=== PATIENT | female | born 2000 | race Hispanic/Latino ===

== ENCOUNTER 2023-10-10 18:27 | Day surgery (SDC) | payer SELFPAY ==
[2023-10-10] MEDS ORDERED: hydrALAZINE 20 MG/ML VIAL SLOW IVP PRN (18:46)
[2023-10-10 19:04] VITALS: BMI 36.7
[2023-10-10 20:29] LABS: Bilirubin Neg (Negative); Blood, Urine Negative (Negative); Clarity Clear (Clear); Glucose, Urine (Dipstick) Normal (Negative); Ketone, Urine Negative (Negative); Leukocyte Negative (Negative); Nitrite Negative (Negative); Protein, Urine (Dipstick) Negative (Neg-Trace); Urobilinogen Normal mg/dL (Less than 2)
[2023-10-10 20:38] LABS: Bacteria/HPF Rare-Few HPF (None Seen); CAUTI Indications for Culture Pregnancy; RBC/HPF 0-3 HPF (0-3); Squamous Epithelial 0-3 HPF (0-3); WBC/HPF None Seen HPF (0-3)
[2023-10-10 20:40] LABS: Urine Culture Reflex Yes Yes
== END 2023-10-10 22:24 | disposition home or self-care (01) ==
LOC: CSHLD/OP 18:27
PROVIDERS: ATTEND Obstetrics & Gynecology
DX: O47.03 False labor before 37 completed weeks of gestation, third trimester (principal); O23.593 Infection of other part of genital tract in pregnancy, third trimester; B96.89 Other specified bacterial agents as the cause of diseases classified elsewhere; Z3A.36 36 weeks gestation of pregnancy
CPT/HCPCS: 81001; 87086; 87480; 87510; 87660; 99285

== ENCOUNTER 2023-10-11 22:41 | Inpatient (IN) | payer MEDICAID, SELFPAY ==
[2023-10-11] MEDS ORDERED: hydrALAZINE 20 MG/ML VIAL SLOW IVP PRN ×2 (23:11→23:23)
[2023-10-11] MEDS ORDERED: fentaNYL 50 mcg/mL 1 mL Vial SLOW IVP PRN (23:23)
[2023-10-11] MEDS ORDERED: Misoprostol 200 MCG TAB PR PRN (23:23)
[2023-10-11] MEDS ORDERED: Acetaminophen 500 MG TAB PO PRN (23:23)
[2023-10-11] MEDS ORDERED: Methylergonovine 0.2 MG/ML VIAL IM PRN (23:23)
[2023-10-11] MEDS ORDERED: Promethazine HCl 25 MG/ML VIAL IM PRN (23:23)
[2023-10-11] MEDS ORDERED: Tranexamic Acid 1,000 MG/10 ML VIAL IVP PRN (23:23)
[2023-10-11] MEDS ORDERED: Carboprost 250 MCG/ML AMP IM PRN (23:23)
[2023-10-11] MEDS ORDERED: Ondansetron PF 4 MG/2 ML Vial IVP PRN (23:23)
[2023-10-11] MEDS ORDERED: Docusate 100 MG CAP PO PRN (23:23)
[2023-10-11] MEDS ORDERED: Oxytocin 30 units/NS 500 ML 500 ML IV SCH (23:30)
[2023-10-11] MEDS ORDERED: Lactated Ringer's 1,000 ML IV SCH (23:30)
[2023-10-11 23:36] LABS: Fetal Membranes Rupture RUPTURE DETECTED (No Rupture)
[2023-10-12 00:21] LABS: Hematocrit 33.3 % (34.9-44.5); Hemoglobin 11.2 g/dL (12.0-15.5); Mean Corpuscular HGB CONC 33.6 g/dL (32.0-36.0); Mean Corpuscular Hemoglobin 28.9 pg (27.0-33.0); Mean Corpuscular Volume 85.8 fl (81.6-98.3); Mean Platelet Volume 10.7 fl (7.4-10.4); Platelet Count 253 10x3/uL (150-450); RBC Distribution Width 13.2 % (11.5-14.5); Red Blood Cell (RBC) Count 3.88 10x6/uL (3.90-5.03)
[2023-10-12 01:09] LABS: Syphilis Antibody Nonreactive (Nonreactive); Syphilis Antibody Index 0.05 S/CO (<1.00 Non-Reactive)
[2023-10-12 01:10] LABS: HBSAg Index 0.11 S/CO (0-0.99); Hep B Surf Ag - L&D Non-Reactive S/CO (NonReactive)
[2023-10-12] MEDS ORDERED: Lidocaine 1% (PF) 30 ML VIAL ONE (02:06)
[2023-10-12] MEDS ORDERED: diphenhydrAMINE 25 MG CAP PO PRN (05:39)
[2023-10-12] MEDS ORDERED: Boostrix 0.5 ML (Tdap) VIAL (>/=7 yrs of age) IM ONE (05:39)
[2023-10-12] MEDS ORDERED: hydrALAZINE 20 MG/ML VIAL SLOW IVP PRN (05:39)
[2023-10-12] MEDS ORDERED: Milk Of Magnesia 30 ML UDCUP PO PRN (05:39)
[2023-10-12] MEDS ORDERED: Bisacodyl 10 MG SUPP PR PRN (05:39)
[2023-10-12] MEDS: Ibuprofen 800 MG TAB PO SCH ×3 (05:55→22:01)
[2023-10-12] MEDS: Ferrous Sulfate 325 MG TAB PO SCH (07:14)
[2023-10-12] MEDS: Prenatal Vitamin 1 TAB PO SCH (10:30)
[2023-10-12] MEDS: Docusate 100 MG CAP PO SCH ×2 (10:30→22:01)
[2023-10-12] MEDS ORDERED: Acetaminophen 325 MG TAB PO PRN (21:52)
[2023-10-13 05:14] LABS: Hematocrit 29.3 % (34.9-44.5); Hemoglobin 9.9 g/dL (12.0-15.5)
[2023-10-13] MEDS: Ibuprofen 800 MG TAB PO SCH ×3 (06:10→21:31)
[2023-10-13] MEDS: Ferrous Sulfate 325 MG TAB PO SCH ×3 (06:37→16:54)
[2023-10-13] MEDS: Docusate 100 MG CAP PO SCH ×2 (08:05→21:32)
[2023-10-13] MEDS: Prenatal Vitamin 1 TAB PO SCH (08:06)
[2023-10-14] MEDS: Ibuprofen 800 MG TAB PO SCH ×2 (06:26→14:11)
[2023-10-14 07:56] VITALS: BP 116/73; TEMP 99
[2023-10-14] MEDS: Prenatal Vitamin 1 TAB PO SCH (09:31)
[2023-10-14] MEDS: Ferrous Sulfate 325 MG TAB PO SCH (09:31)
[2023-10-14] MEDS: Docusate 100 MG CAP PO SCH (09:31)
== END 2023-10-14 18:45 | disposition home or self-care (01) | DRG 807 ==
LOC: CSHLD/OP 22:41 → CSHLD 23:29 → CSHPP 10-12 06:15
PROVIDERS: ADMIT Obstetrics & Gynecology; ATTEND Obstetrics & Gynecology
PROC: 10E0XZZ Delivery of Products of Conception, External Approach (ICD-10-PCS; principal; 2023-10-12)
PROC: 0HQ9XZZ Repair Perineum Skin, External Approach (ICD-10-PCS; 2023-10-12)
DX: O60.14X0 Preterm labor third trimester with preterm delivery third trimester, not applicable or unspecified (principal); Z37.0 Single live birth; Z3A.36 36 weeks gestation of pregnancy; O70.0 First degree perineal laceration during delivery; Z79.899 Other long term (current) drug therapy
CPT/HCPCS: 36415; 84112; 85014; 85018; 85027; 86780; 86850; 86900; 86901; 87340; 99285